=== PATIENT | male | born 1960 | race Two or more races ===

== ENCOUNTER 2019-08-09 05:09 | Emergency (ER) | payer MEDICAID, OTHER ==
[~2019-08-09] VITALS: Ht 172.7 cm; Wt 86.4 kg
[~2019-08-09 05:09] MED LIST: AMLO10TA55 PO; ASPI-1198 PO; HYDR-4173 PO; HYDR12.530 PO; LISI40TA4 PO; SIMV-46 PO
[2019-08-09] MEDS ORDERED: CARV12 PO (05:47)
[2019-08-09] MEDS ORDERED: NITR0.4T52 SL (05:47)
[2019-08-09] MEDS ORDERED: ATOR40TA28 PO (05:47)
[2019-08-09] MEDS ORDERED: LISINOPRIL 10 MG TABLET PO ONE (06:15)
[2019-08-09] MEDS ORDERED: AmLODIPine BESYLATE 5 MG TABLET PO ONE (06:15)
[2019-08-09 06:40] LABS: BASOPHILS % (AUTO) 0.8 % (0.0-2.0); EOSINOPHILS % (AUTO) 0.8 % (1.0-6.0); HEMATOCRIT 41.4 % (41-53); HEMOGLOBIN 13.7 g/dL (13.5-17.5); LYMPHOCYTES # (AUTO) 1.3 K/uL (1.0-4.8); MEAN CORPUSCULAR HEMOGLOBIN 29.8 pg (26.0-34.0); MEAN CORPUSCULAR HGB CONC 33.1 G/dL (31.0-37.0); MEAN CORPUSCULAR VOLUME 90 fL (80-100); MONOCYTES # (AUTO) 0.7 K/uL (0.1-1.0); MONOCYTES % (AUTO) 10.4 % (2.0-9.0); NEUTROPHILS # (AUTO) 4.3 K/uL (1.8-7.7); PLATELET COUNT (AUTO) 273 K/uL (150-450); RED CELL DISTRIBUTION WIDTH 14.1 % (11.5-14.5)
[2019-08-09 06:54] LABS: ALANINE AMINOTRANSFERASE 46 U/L (12-78); ALBUMIN 3.6 g/dL (3.4-5.0); ALKALINE PHOSPHATASE 72 U/L (46-116); ANION GAP 12 mmol/L (8-16); ASPARTATE AMINOTRANSFERASE 38 U/L (15-37); BILIRUBIN,TOTAL 0.7 mg/dL (0.1-1.0); CALCIUM, TOTAL 8.9 mg/dL (8.8-10.5); CARBON DIOXIDE 28 mmol/L (22-29); CHLORIDE 107 mmol/L (98-107); CREATININE 1.09 mg/dL (0.60-1.30); GLOMERULAR FILTR. RATE CALC > 60 mL/min (>60); GLUCOSE,RANDOM 104 mg/dL (70-110); SODIUM SERUM 147 mmol/L (136-145); TOTAL PROTEIN, SERUM 6.7 g/dL (6.4-8.2); UREA NITROGEN, BLOOD 11 mg/dL (7-18)
[2019-08-09 06:57] LABS: POTASSIUM 2.6 mmol/L (3.5-5.1)
[2019-08-09] MEDS ORDERED: POTASSIUM CHL 10 MEQ/WATER 50 ML IV ONE (07:00)
[2019-08-09] MEDS ORDERED: POTASSIUM CHLORIDE 20 MEQ ER TABLET PO ONE (07:00)
[2019-08-09 07:45] VITALS: BP 162/128
[2019-08-09] MEDS ORDERED: CARVEDILOL 3.125 MG TABLET PO ONE (07:45)
== END 2019-08-09 07:50 | disposition left against medical advice (07) ==
LOC: EMS 05:09
DX: I10 Essential (primary) hypertension (principal); E87.6 Hypokalemia; R20.2 Paresthesia of skin; F41.9 Anxiety disorder, unspecified; F17.210 Nicotine dependence, cigarettes, uncomplicated; Z79.82 Long term (current) use of aspirin; Z79.899 Other long term (current) drug therapy
CPT/HCPCS: 36415; 70450; 80053; 84484; 85025; 93005; 96365; 99285; J3480

== ENCOUNTER 2022-03-28 15:13 | Emergency (ER) | payer MEDICAID ==
[~2022-03-28] VITALS: Ht 172.7 cm; Wt 86.0 kg
[~2022-03-28 15:13] MED LIST changes: +ATOR40TA28 PO; +CARV12 PO; -HYDR-4173 PO; -HYDR12.530 PO; -LISI40TA4 PO; +LISI40TA9 PO; +NITR0.4T52 SL; -SIMV-46 PO
[2022-03-28 16:15] LABS: BASOPHILS % (AUTO) 0.6 % (0.0-2.0); HEMATOCRIT 42.5 % (41-53); HEMOGLOBIN 14.1 g/dL (13.5-17.5); LYMPHOCYTES # (AUTO) 1.2 K/uL (1.0-4.8); LYMPHOCYTES % (AUTO) 16.4 % (22.0-44.0); MEAN CORPUSCULAR HEMOGLOBIN 31.2 pg (26.0-34.0); MEAN CORPUSCULAR HGB CONC 33.1 G/dL (31.0-37.0); MEAN CORPUSCULAR VOLUME 94 fL (80-100); MONOCYTES # (AUTO) 0.9 K/uL (0.1-1.0); MONOCYTES % (AUTO) 12.9 % (2.0-9.0); NEUTROPHILS # (AUTO) 4.9 K/uL (1.8-7.7); NEUTROPHILS % (AUTO) 69.1 % (40.0-70.0); PLATELET COUNT (AUTO) 225 K/uL (150-450); RED BLOOD CELL COUNT(AUTO) 4.51 MIL/uL (4.50-5.90); RED CELL DISTRIBUTION WIDTH 14.1 % (11.5-14.5)
[2022-03-28 16:21] LABS: COVID AG,FIA SOURCE NASOPHARYNGEAL
[2022-03-28 16:25] LABS: CREATININE 1.6 mg/dL (0.60-1.30); POTASSIUM 3.1 mmol/L (3.5-5.1)
[2022-03-28 16:31] LABS: ALBUMIN 3.8 g/dL (3.4-5.0); BILIRUBIN,TOTAL 0.5 mg/dL (0.1-1.0)
[2022-03-28 17:13] VITALS: BP 119/60
[2022-03-28] MEDS ORDERED: BENZ-70 PO (17:33)
== END 2022-03-28 17:51 | disposition home or self-care (01) ==
LOC: EMS 15:13
DX: S09.90XA Unspecified injury of head, initial encounter (principal); Z20.822 Contact with and (suspected) exposure to COVID-19; F10.20 Alcohol dependence, uncomplicated; F17.210 Nicotine dependence, cigarettes, uncomplicated; I10 Essential (primary) hypertension; I25.10 Atherosclerotic heart disease of native coronary artery without angina pectoris; J40 Bronchitis, not specified as acute or chronic; M19.90 Unspecified osteoarthritis, unspecified site; R06.00 Dyspnea, unspecified; W19.XXXA Unspecified fall, initial encounter; Y93.89 Activity, other specified; Y92.89 Other specified places as the place of occurrence of the external cause; Y99.8 Other external cause status; Z59.00 Homelessness unspecified
CPT/HCPCS: 70450; 71045; 80053; 83880; 84484; 85025; 93005; 99285; 36415-L1; 36415-TC

== ENCOUNTER 2022-07-17 09:09 | Inpatient (IN) | payer MEDICAID ==
[~2022-07-17] VITALS: Ht 172.7 cm; Wt 72.1 kg
[~2022-07-17 09:09] MED LIST changes: +BENZ-227 PO
[2022-07-17 09:36] LABS: COVID AG,FIA SOURCE NASAL SWAB
[2022-07-17 10:04] LABS: INFLUENZA TYPE A NEGATIVE FOR TYPE A (NEGATIVE); INFLUENZA TYPE B NEGATIVE FOR TYPE B (NEGATIVE)
[2022-07-17] MEDS ORDERED: SODIUM CHLORIDE 0.9% 500 ML IV ONE (12:45)
[2022-07-17] MEDS ORDERED: ONDANSETRON HCL 4 MG/2 ML VIAL IVP ONE (12:45)
[2022-07-17 13:15] LABS: BASOPHILS % (AUTO) 0.1 % (0.0-2.0); EOSINOPHILS % (AUTO) 0.2 % (1.0-6.0); HEMATOCRIT 39.5 % (41-53); HEMOGLOBIN 12.5 g/dL (13.5-17.5); LYMPHOCYTES % (AUTO) 11.4 % (22.0-44.0); MEAN CORPUSCULAR HEMOGLOBIN 29.6 pg (26.0-34.0); MEAN CORPUSCULAR HGB CONC 31.7 G/dL (31.0-37.0); MEAN CORPUSCULAR VOLUME 93 fL (80-100); MONOCYTES # (AUTO) 0.8 K/uL (0.1-1.0); NEUTROPHILS # (AUTO) 6.9 K/uL (1.8-7.7); NEUTROPHILS % (AUTO) 79.3 % (40.0-70.0); PLATELET COUNT (AUTO) 269 K/uL (150-450); RED BLOOD CELL COUNT(AUTO) 4.23 MIL/uL (4.50-5.90); RED CELL DISTRIBUTION WIDTH 14.9 % (11.5-14.5)
[2022-07-17 13:49] LABS: CREATININE 1.28 mg/dL (0.60-1.30); POTASSIUM 3.8 mmol/L (3.5-5.1)
[2022-07-17 13:50] LABS: CALCIUM, TOTAL 8.8 mg/dL (8.8-10.5)
[2022-07-17 14:14] LABS: ALBUMIN 3.5 g/dL (3.4-5.0); BILIRUBIN,TOTAL 0.8 mg/dL (0.1-1.0); TOTAL PROTEIN, SERUM 6.9 g/dL (6.4-8.2)
[2022-07-17] MEDS ORDERED: FUROSEMIDE 40 MG/4 ML VIAL IVP ONE (14:15)
[2022-07-17] MEDS ORDERED: BUME2TAB5 PO (14:20)
[2022-07-17] MEDS ORDERED: CARV6.2534 PO (14:20)
[2022-07-17] MEDS ORDERED: FAMO20TA8 PO (14:20)
[2022-07-17] MEDS ORDERED: ASPI-1444 PO (14:20)
[2022-07-17] MEDS ORDERED: LOSA-381 PO (14:20)
[2022-07-17] MEDS ORDERED: NITROGLYCERIN 2% (1 GM=INCH) OINTMENT PACKET TP ONE (14:45)
[2022-07-17] MEDS ORDERED: 0.9% SODIUM CHLORIDE 10 ML SYRINGE IVP PRN (15:15)
[2022-07-17] MEDS ORDERED: DOCUSATE SODIUM 100 MG CAPSULE PO PRN (15:15)
[2022-07-17] MEDS ORDERED: IPRATROPIUM BROMIDE 0.5 MG/2.5 ML NEB SOLUTION NEB PRN (15:15)
[2022-07-17] MEDS ORDERED: NITROGLYCERIN 0.4 MG SUBLINGUAL TABLET #25 SL PRN (15:15)
[2022-07-17] MEDS ORDERED: ONDANSETRON HCL 4 MG/2 ML VIAL IVP PRN (15:15)
[2022-07-17] MEDS ORDERED: ACETAMINOPHEN 325 MG TABLET PO PRN (15:15)
[2022-07-17] MEDS ORDERED: ALBUTEROL SULFATE 2.5 MG/0.5 ML NEB SOLUTION NEB PRN (15:15)
[2022-07-17] MEDS ORDERED: BISACODYL 10 MG RECTAL RECTAL SUPPOSITORY PR PRN (15:15)
[2022-07-17] MEDS: HEPARIN SODIUM,PORCINE 5,000 UNITS/ML VIAL SQ SCH (16:10)
[2022-07-17] MEDS ORDERED: CARVEDILOL 6.25 MG TABLET PO SCH (21:00)
[2022-07-17 21:17] VITALS: BP 134/97
[2022-07-17] MEDS: ATORVASTATIN CALCIUM 40 MG TABLET PO SCH (21:51)
[2022-07-17] MEDS: CARVEDILOL 6.25 MG TABLET PO SCH (21:51)
[2022-07-17] MEDS: FAMOTIDINE 20 MG TABLET PO SCH (21:51)
[2022-07-17] MEDS: BUMETANIDE 0.25 MG/ML 4 ML VIAL IVP SCH (22:54)
[2022-07-18] MEDS: HEPARIN SODIUM,PORCINE 5,000 UNITS/ML VIAL SQ SCH ×3 (00:20→17:37)
[2022-07-18 01:13] VITALS: BP 124/85
[2022-07-18 04:26] VITALS: BP 125/91
[2022-07-18 06:56] LABS: BASOPHILS % (AUTO) 0.3 % (0.0-2.0); HEMATOCRIT 37.2 % (41-53); LYMPHOCYTES # (AUTO) 1.2 K/uL (1.0-4.8); MEAN CORPUSCULAR HEMOGLOBIN 30.1 pg (26.0-34.0); MEAN CORPUSCULAR HGB CONC 32.3 G/dL (31.0-37.0); MEAN CORPUSCULAR VOLUME 93 fL (80-100); MONOCYTES # (AUTO) 0.7 K/uL (0.1-1.0); MONOCYTES % (AUTO) 11.5 % (2.0-9.0); NEUTROPHILS # (AUTO) 4.2 K/uL (1.8-7.7); NEUTROPHILS % (AUTO) 68.2 % (40.0-70.0); PLATELET COUNT (AUTO) 250 K/uL (150-450); RED BLOOD CELL COUNT(AUTO) 3.99 MIL/uL (4.50-5.90); RED CELL DISTRIBUTION WIDTH 14.8 % (11.5-14.5)
[2022-07-18 07:17] LABS: ALBUMIN 2.9 g/dL (3.4-5.0); BILIRUBIN,TOTAL 0.9 mg/dL (0.1-1.0); CALCIUM, TOTAL 8.6 mg/dL (8.8-10.5); CHOL/HDL RATIO 2.5 (4.2-7.3); CREATININE 1.43 mg/dL (0.60-1.30); POTASSIUM 3.8 mmol/L (3.5-5.1); TOTAL PROTEIN, SERUM 6.2 g/dL (6.4-8.2)
[2022-07-18 07:28] VITALS: BP 123/98
[2022-07-18] MEDS ORDERED: LOSARTAN POTASSIUM 25 MG TABLET PO SCH (09:00)
[2022-07-18] MEDS ORDERED: FUROSEMIDE 40 MG/4 ML VIAL IVP SCH (09:00)
[2022-07-18] MEDS ORDERED: ATORVASTATIN CALCIUM 40 MG TABLET PO SCH (09:00)
[2022-07-18] MEDS ORDERED: ASPIRIN 81 MG DR TABLET PO SCH (09:00)
[2022-07-18] MEDS: LOSARTAN POTASSIUM 25 MG TABLET PO SCH (09:32)
[2022-07-18] MEDS: FAMOTIDINE 20 MG TABLET PO SCH ×2 (09:33→20:01)
[2022-07-18] MEDS: ASPIRIN 81 MG DR TABLET PO SCH (09:33)
[2022-07-18] MEDS: CARVEDILOL 6.25 MG TABLET PO SCH ×2 (09:34→20:01)
[2022-07-18] MEDS: BUMETANIDE 0.25 MG/ML 4 ML VIAL IVP SCH (09:35)
[2022-07-18] MEDS: DOXYCYCLINE HYCLATE 100 MG in DEXTROSE 5%-WATER 100 ML IV SCH ×3 (09:37→20:02)
[2022-07-18] MEDS ORDERED: SODIUM CHLORIDE 0.9% 250 ML IV ONE (09:47)
[2022-07-18] MEDS: CefTRIAXone 1 GM/DEXTROSE 50 ML IV SCH (09:57)
[2022-07-18 11:33] VITALS: BP 131/91
[2022-07-18 15:13] VITALS: BP_SYST 119; BP_SYST 128; BP_DIAS 85; BP_DIAS 92
[2022-07-18 15:56] LABS: APPEARANCE,URINE CLEAR (CLEAR); BILIRUBIN,URINE NEGATIVE (NEGATIVE); GLUCOSE, URINE (UA) NEGATIVE (NEGATIVE); KETONES,URINE NEGATIVE (NEGATIVE); LEUKOCYTE ESTERASE ,URINE NEGATIVE (NEGATIVE); NITRATE,URINE NEGATIVE (NEGATIVE); OCCULT BLOOD,URINE NEGATIVE (NEGATIVE); PH,URINE 6.5 (5.0-8.0); PROTEIN,URINE NEGATIVE (NEGATIVE); SPECIFIC GRAVITIY, URINE 1.008 (1.003-1.030); UROBILINOGEN,URINE <=1.0 mg/dL (<=1.0)
[2022-07-18 16:02] LABS: AMPHET/METH SCREEN,URINE NEGATIVE (NEGATIVE); BARBITURATE SCREEN, URINE NEGATIVE (NEGATIVE); BENZODIAZEPINES SCREEN,URINE NEGATIVE (NEGATIVE); CANNABINOID SCREEN,URINE NEGATIVE (NEGATIVE); COCAINE SCREEN,URINE NEGATIVE (NEGATIVE); METHADONE SCREEN, URINE NEGATIVE (NEGATIVE); OPIATE SCREEN,URINE NEGATIVE (NEGATIVE); PHENCYCLIDINE SCREEN,URINE POSITIVE (NEGATIVE)
[2022-07-18 19:48] VITALS: BP 132/93
[2022-07-18] MEDS: BUMETANIDE 1 MG TABLET PO SCH (20:01)
[2022-07-18] MEDS: ATORVASTATIN CALCIUM 40 MG TABLET PO SCH (20:02)
[2022-07-19] VITALS (7 sets, daily range): BP systolic 120–134; BP diastolic 76–95
[2022-07-19] MEDS: HEPARIN SODIUM,PORCINE 5,000 UNITS/ML VIAL SQ SCH ×3 (00:52→16:33)
[2022-07-19 07:09] LABS: BASOPHILS % (AUTO) 0.4 % (0.0-2.0); EOSINOPHILS % (AUTO) 1.9 % (1.0-6.0); HEMATOCRIT 35.9 % (41-53); HEMOGLOBIN 11.9 g/dL (13.5-17.5); LYMPHOCYTES # (AUTO) 1.5 K/uL (1.0-4.8); LYMPHOCYTES % (AUTO) 24.5 % (22.0-44.0); MEAN CORPUSCULAR HEMOGLOBIN 30.6 pg (26.0-34.0); MEAN CORPUSCULAR HGB CONC 33.1 G/dL (31.0-37.0); MEAN CORPUSCULAR VOLUME 92 fL (80-100); MONOCYTES # (AUTO) 0.7 K/uL (0.1-1.0); MONOCYTES % (AUTO) 11.2 % (2.0-9.0); NEUTROPHILS # (AUTO) 3.8 K/uL (1.8-7.7); PLATELET COUNT (AUTO) 245 K/uL (150-450); RED BLOOD CELL COUNT(AUTO) 3.89 MIL/uL (4.50-5.90); RED CELL DISTRIBUTION WIDTH 14.7 % (11.5-14.5)
[2022-07-19 07:31] LABS: ALBUMIN 2.8 g/dL (3.4-5.0); BILIRUBIN,TOTAL 0.5 mg/dL (0.1-1.0); CALCIUM, TOTAL 8.4 mg/dL (8.8-10.5); CREATININE 1.57 mg/dL (0.60-1.30); POTASSIUM 4.5 mmol/L (3.5-5.1); TOTAL PROTEIN, SERUM 6.5 g/dL (6.4-8.2)
[2022-07-19] MEDS: DOXYCYCLINE HYCLATE 100 MG in DEXTROSE 5%-WATER 100 ML IV SCH (08:58)
[2022-07-19] MEDS: LOSARTAN POTASSIUM 25 MG TABLET PO SCH (09:01)
[2022-07-19] MEDS: ASPIRIN 81 MG DR TABLET PO SCH (09:01)
[2022-07-19] MEDS: FAMOTIDINE 20 MG TABLET PO SCH ×2 (09:01→20:35)
[2022-07-19] MEDS: BUMETANIDE 1 MG TABLET PO SCH (09:01)
[2022-07-19] MEDS: CARVEDILOL 6.25 MG TABLET PO SCH ×2 (09:01→20:35)
[2022-07-19] MEDS: CefTRIAXone 1 GM/DEXTROSE 50 ML IV SCH (09:02)
[2022-07-19] MEDS: ATORVASTATIN CALCIUM 40 MG TABLET PO SCH (20:35)
[2022-07-20] MEDS: HEPARIN SODIUM,PORCINE 5,000 UNITS/ML VIAL SQ SCH ×2 (00:13→09:19)
[2022-07-20 00:17] VITALS: BP 131/89
[2022-07-20 04:18] VITALS: BP_SYST 122; BP_SYST 144; BP_DIAS 69; BP_DIAS 83
[2022-07-20 06:58] LABS: BASOPHILS % (AUTO) 0.5 % (0.0-2.0); EOSINOPHILS % (AUTO) 1.3 % (1.0-6.0); HEMATOCRIT 36.1 % (41-53); HEMOGLOBIN 12.1 g/dL (13.5-17.5); LYMPHOCYTES # (AUTO) 1.3 K/uL (1.0-4.8); LYMPHOCYTES % (AUTO) 20.6 % (22.0-44.0); MEAN CORPUSCULAR HEMOGLOBIN 30.8 pg (26.0-34.0); MEAN CORPUSCULAR HGB CONC 33.5 G/dL (31.0-37.0); MEAN CORPUSCULAR VOLUME 92 fL (80-100); MONOCYTES # (AUTO) 0.8 K/uL (0.1-1.0); MONOCYTES % (AUTO) 12.4 % (2.0-9.0); NEUTROPHILS # (AUTO) 4.2 K/uL (1.8-7.7); NEUTROPHILS % (AUTO) 65.2 % (40.0-70.0); PLATELET COUNT (AUTO) 274 K/uL (150-450); RED BLOOD CELL COUNT(AUTO) 3.93 MIL/uL (4.50-5.90); RED CELL DISTRIBUTION WIDTH 14.7 % (11.5-14.5)
[2022-07-20 07:13] LABS: CALCIUM, TOTAL 8.8 mg/dL (8.8-10.5); CREATININE 1.25 mg/dL (0.60-1.30); MAGNESIUM 2.1 mg/dL (1.80-2.40); POTASSIUM 4.1 mmol/L (3.5-5.1)
[2022-07-20 07:52] VITALS: BP 122/87
[2022-07-20] MEDS ORDERED: FUROSEMIDE 20 MG TABLET PO SCH (09:00)
[2022-07-20] MEDS ORDERED: CARVEDILOL 12.5 MG TABLET PO SCH (09:00)
[2022-07-20] MEDS: LOSARTAN POTASSIUM 25 MG TABLET PO SCH (09:17)
[2022-07-20] MEDS: ASPIRIN 81 MG DR TABLET PO SCH (09:18)
[2022-07-20] MEDS: FAMOTIDINE 20 MG TABLET PO SCH (09:22)
[2022-07-20 11:28] VITALS: BP 122/87
[2022-07-20] MEDS ORDERED: CARV12 PO (13:16)
[2022-07-20] MEDS ORDERED: FURO20 PO (13:18)
== END 2022-07-20 13:40 | disposition home or self-care (01) | DRG 139 ==
LOC: EMS 09:13 → AHU 14:51 → 5S 18:59
PROVIDERS: ADMIT Internal Medicine; ATTEND Internal Medicine
DX: J18.9 Pneumonia, unspecified organism (principal); J96.01 Acute respiratory failure with hypoxia; I50.23 Acute on chronic systolic (congestive) heart failure; N17.9 Acute kidney failure, unspecified; R65.10 Systemic inflammatory response syndrome (SIRS) of non-infectious origin without acute organ dysfunction; I13.0 Hypertensive heart and chronic kidney disease with heart failure and stage 1 through stage 4 chronic kidney disease, or unspecified chronic kidney disease; I25.10 Atherosclerotic heart disease of native coronary artery without angina pectoris; E78.5 Hyperlipidemia, unspecified; K21.9 Gastro-esophageal reflux disease without esophagitis; Z20.822 Contact with and (suspected) exposure to COVID-19; N18.9 Chronic kidney disease, unspecified; Z87.891 Personal history of nicotine dependence; Z79.899 Other long term (current) drug therapy; Z95.5 Presence of coronary angioplasty implant and graft
CPT/HCPCS: 71045; 80048; 80053; 80061; 80307; 81003; 82550; 83735; 83880; 84145; 84484; 85025; 87040; 87804; 93005; 93306; 99291; J0696; J1644; J1940; J2405; J3490; J7040; J7050; J7060; 36415-L1; 36415-TC

== ENCOUNTER 2022-11-05 22:04 | Emergency (ER) | payer MEDICARE, MEDICAID ==
[~2022-11-05] VITALS: Ht 172.7 cm; Wt 84.0 kg
[~2022-11-05 22:04] MED LIST changes: -AMLO10TA55 PO; -ASPI-1198 PO; +ASPI-1444 PO; -BENZ-227 PO; -CARV12 PO; +FAMO20TA8 PO; -LISI40TA9 PO; +LOSA-381 PO
[2022-11-05] MEDS ORDERED: MethylPREDNISolone SOD SUCC 125 MG/2 ML VIAL IVP ONE (22:15)
[2022-11-05] MEDS ORDERED: IPRATROPIUM BROMIDE 0.5 MG/2.5 ML NEB SOLUTION NEB ONE (22:15)
[2022-11-05] MEDS ORDERED: NITROGLYCERIN 2% (1 GM=INCH) OINTMENT PACKET TP ONE (22:15)
[2022-11-05] MEDS ORDERED: ALBUTEROL SULFATE 2.5 MG/0.5 ML NEB SOLUTION NEB ONE (22:15)
[2022-11-05 22:45] LABS: BASOPHILS % (AUTO) 0.6 % (0.0-2.0); EOSINOPHILS % (AUTO) 0.9 % (1.0-6.0); HEMOGLOBIN 12.6 g/dL (13.5-17.5); LYMPHOCYTES # (AUTO) 1.1 K/uL (1.0-4.8); MEAN CORPUSCULAR HEMOGLOBIN 29.5 pg (26.0-34.0); MEAN CORPUSCULAR HGB CONC 32.3 G/dL (31.0-37.0); MEAN CORPUSCULAR VOLUME 91 fL (80-100); MONOCYTES # (AUTO) 0.7 K/uL (0.1-1.0); MONOCYTES % (AUTO) 7.1 % (2.0-9.0); NEUTROPHILS # (AUTO) 7.8 K/uL (1.8-7.7); NEUTROPHILS % (AUTO) 80.4 % (40.0-70.0); PLATELET COUNT (AUTO) 222 K/uL (150-450); RED BLOOD CELL COUNT(AUTO) 4.28 MIL/uL (4.50-5.90); RED CELL DISTRIBUTION WIDTH 16.6 % (11.5-14.5)
[2022-11-05 22:48] LABS: CALCIUM, TOTAL 9.1 mg/dL (8.8-10.5); CREATININE 1.33 mg/dL (0.60-1.30); POTASSIUM 3.8 mmol/L (3.5-5.1)
[2022-11-05 23:13] LABS: ALBUMIN 3.6 g/dL (3.4-5.0); BILIRUBIN,TOTAL 0.6 mg/dL (0.1-1.0)
[2022-11-06] MEDS ORDERED: AZITHROMYCIN 500 MG/NS 250 ML IV ONE (00:45)
[2022-11-06] MEDS ORDERED: CefTRIAXone 1 GM/DEXTROSE 50 ML IV ONE (00:45)
[2022-11-06 01:27] LABS: APPEARANCE,URINE CLEAR (CLEAR); BILIRUBIN,URINE NEGATIVE (NEGATIVE); GLUCOSE, URINE (UA) NEGATIVE (NEGATIVE); KETONES,URINE NEGATIVE (NEGATIVE); LEUKOCYTE ESTERASE ,URINE NEGATIVE (NEGATIVE); NITRATE,URINE NEGATIVE (NEGATIVE); OCCULT BLOOD,URINE NEGATIVE (NEGATIVE); PH,URINE 7.5 (5.0-8.0); PROTEIN,URINE NEGATIVE (NEGATIVE); SPECIFIC GRAVITIY, URINE 1.014 (1.003-1.030); UROBILINOGEN,URINE <=1.0 mg/dL (<=1.0)
[2022-11-06 01:32] LABS: AMPHET/METH SCREEN,URINE POSITIVE (NEGATIVE); BARBITURATE SCREEN, URINE NEGATIVE (NEGATIVE); BENZODIAZEPINES SCREEN,URINE NEGATIVE (NEGATIVE); CANNABINOID SCREEN,URINE POSITIVE (NEGATIVE); COCAINE SCREEN,URINE NEGATIVE (NEGATIVE); METHADONE SCREEN, URINE NEGATIVE (NEGATIVE); OPIATE SCREEN,URINE NEGATIVE (NEGATIVE); PHENCYCLIDINE SCREEN,URINE POSITIVE (NEGATIVE)
[2022-11-06] MEDS ORDERED: PRED-554 PO (02:17)
[2022-11-06] MEDS ORDERED: AZIT250T9 PO (02:17)
[2022-11-06] MEDS ORDERED: ALBU18HF12 IH (02:17)
[2022-11-06 02:55] VITALS: BP 152/98
== END 2022-11-06 02:57 | disposition home or self-care (01) ==
LOC: EMS 22:04
DX: J45.909 Unspecified asthma, uncomplicated (principal); J18.9 Pneumonia, unspecified organism; M19.90 Unspecified osteoarthritis, unspecified site; I25.10 Atherosclerotic heart disease of native coronary artery without angina pectoris; I10 Essential (primary) hypertension; F17.210 Nicotine dependence, cigarettes, uncomplicated; Z79.899 Other long term (current) drug therapy
CPT/HCPCS: 99291; 71045; 96375; 80053; 82550; 83880; 84484; 85025; 85379; 87040; 36415; 94640; 93005; 80307; 81003; 96365; 96368; J2930; J0456; J0696; J7613

== ENCOUNTER 2022-12-15 04:37 | Emergency (ER) | payer OTHER, MEDICAID ==
[~2022-12-15] VITALS: Ht 172.7 cm; Wt 77.0 kg
[~2022-12-15 04:37] MED LIST changes: +ALBU18HF12 IH; +PRED-554 PO
[2022-12-15 04:49] VITALS: TEMP 98
[2022-12-15 07:00] VITALS: BP 142/100; PULSE 84; RESP 16
== END 2022-12-15 13:18 | disposition left against medical advice (07) ==
LOC: EMS 04:37
DX: K40.91 Unilateral inguinal hernia, without obstruction or gangrene, recurrent (principal); I10 Essential (primary) hypertension; F12.90 Cannabis use, unspecified, uncomplicated; Z98.890 Other specified postprocedural states
CPT/HCPCS: 99281; Z7502

== ENCOUNTER 2023-02-16 02:44 | Emergency (ER) | payer MEDICARE, MEDICAID ==
[~2023-02-16] VITALS: Ht 172.7 cm; Wt 79.5 kg
[2023-02-16 03:03] VITALS: BP 140/92; PULSE 90; RESP 16; TEMP 98
[2023-02-16] MEDS ORDERED: ACETAMINOPHEN 500 MG TABLET PO ONE (03:30)
== END 2023-02-16 04:43 | disposition home or self-care (01) ==
LOC: EMS 02:46
DX: R51.9 Headache, unspecified (principal); I10 Essential (primary) hypertension; F12.90 Cannabis use, unspecified, uncomplicated; Z98.890 Other specified postprocedural states
CPT/HCPCS: 99282; Z7502; Z7610

== ENCOUNTER 2023-06-05 17:16 | Emergency (ER) | payer MEDICARE, MEDICAID ==
[~2023-06-05] VITALS: Ht 172.7 cm; Wt 84.0 kg
[2023-06-05 17:28] VITALS: TEMP 98.3
[2023-06-05] MEDS ORDERED: FLUORESCEIN SODIUM 1 MG STRIP OU ONE (21:45)
[2023-06-05] MEDS ORDERED: PROPARACAINE HCL 0.5% 15 ML OPHTHALMIC SOLUTION OU ONE (21:45)
[2023-06-05 22:00] VITALS: BP 119/61; PULSE 65; RESP 17
[2023-06-05] MEDS ORDERED: TOBRAMYCIN/DEXAMETHASONE 5 ML OPHTHALMIC SUSPENSION OS ONE (22:45)
== END 2023-06-05 22:56 | disposition home or self-care (01) ==
LOC: EMS 17:20
DX: H10.89 Other conjunctivitis (principal); I10 Essential (primary) hypertension; F12.90 Cannabis use, unspecified, uncomplicated; Z98.890 Other specified postprocedural states
CPT/HCPCS: 99173; 99283

== ENCOUNTER 2023-07-23 00:27 | Emergency (ER) | payer MEDICARE, MEDICAID ==
[~2023-07-23] VITALS: Ht 172.7 cm; Wt 85.0 kg
[2023-07-23 00:35] VITALS: BP 134/100; PULSE 84; RESP 20; TEMP 98
[2023-07-23] MEDS ORDERED: TOBR5DRO44 OU (01:01)
== END 2023-07-23 01:15 | disposition home or self-care (01) ==
LOC: EMS 00:28
DX: H10.33 Unspecified acute conjunctivitis, bilateral (principal); I10 Essential (primary) hypertension; F12.90 Cannabis use, unspecified, uncomplicated
CPT/HCPCS: 99283

== ENCOUNTER 2023-12-12 02:23 | Emergency (ER) | payer MEDICARE, MEDICAID ==
[~2023-12-12] VITALS: Ht 172.7 cm; Wt 95.0 kg
[~2023-12-12 02:23] MED LIST changes: +AMLO-257 PO; +FURO-152 PO; +LOSA-382 PO; +METO-391 PO; +POTA8CAP20 PO
[2023-12-12 02:53] VITALS: BP 151/103; PULSE 92; RESP 20; TEMP 97.9
== END 2023-12-12 04:50 | disposition left against medical advice (07) ==
LOC: EMS 02:23
DX: H57.12 Ocular pain, left eye (principal); Z53.21 Procedure and treatment not carried out due to patient leaving prior to being seen by health care provider

== ENCOUNTER 2024-01-09 23:09 | Emergency (ER) | payer BC, MEDICAID ==
[~2024-01-09] VITALS: Ht 172.7 cm; Wt 84.1 kg
[2024-01-09 23:21] VITALS: BP 132/93; PULSE 97; RESP 16; TEMP 97.5
[2024-01-10] MEDS: SULFACETAMIDE SODIUM 10% 15 ML OPHTHALMIC SOLUTION OS ONE (01:41)
[2024-01-10] MEDS: FLUORESCEIN SODIUM 1 MG STRIP OD ONE (01:42)
[2024-01-10] MEDS: ERYTHROMYCIN 0.5% 3.5 GM TUBE OPHTHALMIC OINTMENT OS ONE (01:42)
[2024-01-10] MEDS ORDERED: TRAM50TA5 PO (12:50)
== END 2024-01-10 02:24 | disposition home or self-care (01) ==
LOC: EMS 23:09
DX: H10.89 Other conjunctivitis (principal); I11.0 Hypertensive heart disease with heart failure; I50.9 Heart failure, unspecified; F12.90 Cannabis use, unspecified, uncomplicated
CPT/HCPCS: 99283; 99284

== ENCOUNTER 2024-01-10 11:57 | Emergency (ER) | payer MEDICARE, MEDICAID ==
[~2024-01-10] VITALS: Ht 172.7 cm; Wt 68.2 kg
[2024-01-10 12:01] VITALS: TEMP 97.8
[2024-01-10] MEDS ORDERED: TRAM50TA5 PO (12:50)
[2024-01-10 13:08] VITALS: BP 134/94; PULSE 84; RESP 16
[2024-01-10 13:16] LABS: GLUCOMETER DEV NAME(LOC) ERT.5; GLUCOSE,POINT OF CARE 111 MG/DL (70-110)
== END 2024-01-10 13:16 | disposition home or self-care (01) ==
LOC: EMS 11:57
DX: H10.89 Other conjunctivitis (principal); I11.0 Hypertensive heart disease with heart failure; I50.9 Heart failure, unspecified; F12.90 Cannabis use, unspecified, uncomplicated
CPT/HCPCS: 82962; 99283

== ENCOUNTER 2024-01-29 02:16 | Emergency (ER) | payer MEDICARE, MEDICAID ==
[~2024-01-29] VITALS: Ht 172.7 cm; Wt 86.4 kg
[~2024-01-29 02:16] MED LIST changes: +TRAM50TA5 PO
[2024-01-29 02:20] VITALS: BP 120/90; PULSE 83; RESP 16; TEMP 97.6; O2SAT 95
== END 2024-01-29 03:37 | disposition left against medical advice (07) ==
LOC: EMS 02:16
DX: R10.32 Left lower quadrant pain (principal); R10.31 Right lower quadrant pain; Z53.21 Procedure and treatment not carried out due to patient leaving prior to being seen by health care provider

== ENCOUNTER 2024-03-09 00:34 | Emergency (ER) | payer MEDICARE, MEDICAID ==
[~2024-03-09] VITALS: Ht 172.7 cm; Wt 77.3 kg
[2024-03-09 00:57] VITALS: BP 133/100; PULSE 87; RESP 18; TEMP 97.5; O2SAT 97
[2024-03-09] MEDS ORDERED: COLC-3 PO (01:50)
[2024-03-09] MEDS ORDERED: IBUP-1554 PO (01:50)
[2024-03-09] MEDS ORDERED: DICL100G60 TP (01:50)
[2024-03-09] MEDS ORDERED: HYDR-4072 PO (01:50)
[2024-03-09] MEDS: COLCHICINE 0.6 MG TABLET PO ONE (01:57)
[2024-03-09] MEDS: IBUPROFEN 600 MG TABLET PO ONE (01:57)
[2024-03-09] MEDS: DICLOFENAC SODIUM 1% 100 GM GEL [4GM] TP ONE (01:58)
== END 2024-03-09 02:42 | disposition home or self-care (01) ==
LOC: EMS 00:34
DX: M10.9 Gout, unspecified (principal); I11.0 Hypertensive heart disease with heart failure; F12.90 Cannabis use, unspecified, uncomplicated; Z79.82 Long term (current) use of aspirin; Z95.5 Presence of coronary angioplasty implant and graft
CPT/HCPCS: 99284; Z7502; Z7610